=== PATIENT | male | born 1955 ===

== ENCOUNTER 2024-09-06 11:47 | Emergency (ER) | payer SELFPAY ==
[2024-09-06 11:48] VITALS: BP 141/63; PULSE 80; RESP 17; TEMP 36.7; O2SAT 95
--- NOTE | 2024-09-06 12:10 | XR_ITS ---
WS: [id number] XR knee LT 3V* [id number] REASON FOR EXAM: pain FINDINGS: Total left knee arthroplasty. Comminuted fracture of the distal femoral metadiaphysis with mild fracture displacement and anterior angulation at the fracture site. There may be an undisplaced fracture of the upper pole of the patella. The femoral component of the arthroplasty maintains appropriate relation to the tibial portion of the arthroplasty. XR/XR knee LT 3V* [id number] IMPRESSION: Femoral and possible patellar fracture of a total left knee arthroplasty as abo ve.
[2024-09-06 12:58] VITALS: BP 140/77; PULSE 78; O2SAT 94
--- NOTE | 2024-09-06 13:19 | PC.NURSE ---
per family transportation worker pt does not want the morphine anymore, but requesting tylenol if possible. Dr. Moore notified.
--- NOTE | 2024-09-06 13:27 | W.ED.EXTPRO ---
HPI - Extremity Problem General: Chief complaint: Extremity Injury, Lower Stated complaint: fall - left knee pain Time Seen by Provider: 09/06/24 11:50 History of Present Illness: Patient is a 69-year-old non-Gabonese speaking male who presents via EMS after a fall outside while disposing of garbage. Patient reports falling on grass/dirt and hyperextending his left knee. Of note, patient has bilateral total knee replacements performed in [facility] in May 2017 (approximately 7 years ago). Patient complains of left knee pain and limited range of motion. He denies any other injuries. Patient arrived ambulatory with EMS but now unable to bear weight on the affected extremity. MD Complaint: extremity pain Related Data Allergies Allergy/AdvReac Type Severity Reaction Status Date / Time No Known Allergies Allergy Verified 09/06/24 11:53 Physical Exam Const: COMMON NORMALS: no acute distress, average body habitus, alert and well nourished GENERAL APPEARANCE: cooperative ORIENTATION/CONSCIOUSNESS: Yes awake HENMT: COMMON NORMALS: normocephalic and atraumatic HEAD & SCALP: normocephalic and atraumatic Eye: COMMON NORMALS: conjunctivae normal CONJUNCTIVA: Yes conjunctivae normal Neck/C-Spine: GENERAL: Yes normal visual inspection Resp: COMMON NORMALS: normal respiratory effort, No retractions and No use of accessory muscles Cardio: COMMON NORMALS: regular rhythm and Peripheral pulses 2+ throughout RHYTHM: regular rhythm PERIPHERAL PULSES: Peripheral pulses 2+ throughout GI: COMMON NORMALS: Soft to palpation and non-tender PALPATION: Yes Soft to palpation Extremity: NARRATIVE EXTREMITY EXAM: limited ROM of the LLE at knee due to pain. NV intact. Closed. superficial abrasion noted to the left knee. Neuro: COMMON NORMALS: no focal motor deficits SENSORIUM/ORIENTATION: Yes alert Skin: COMMON NORMALS: no rashes or lesions noted GENERAL SKIN EXAM: no rashes or lesions noted Course Vital Signs: Vital signs: Vital Signs Temperature 98.1 F 09/06/24 11:48 Pulse Rate 78 09/06/24 12:58 Respiratory Rate 17 09/06/24 11:48 Blood Pressure 140/77 09/06/24 12:58 Pulse Oximetry 94 09/06/24 12:58 Oxygen Delivery Me thod Room Air 09/06/24 12:58 MDM - Extremity (Nontraumatic) Medical Decision Making ROS: Constitutional: Denies fever, chills Musculoskeletal: Left knee pain and limited range of motion, denies hip pain Neurological: Normal sensation in lower extremities All other systems reviewed and negative MEDICATIONS AND ALLERGIES: Medications: - Multivitamin Allergies: - No known drug allergies PAST HISTORICAL DATA: Past Surgical History: - Bilateral total knee replacements (2018, [facility]) Social History: - Recently moved to [facility] (approximately 6 months ago) - Non-Gabonese speaking PHYSICAL EXAM: General: Alert, non-toxic appearing, in moderate distress due to pain HEENT: Head normocephalic and atraumatic. Mucous membranes moist Neck: Supple Respiratory: No increased work of breathing, No wheezing Cardiac: Regular rate and rhythm, 2+ pulses in all extremities Abdomen: Soft, non-distended, no rebound or guarding Musculoskeletal: - Left knee: Superficial abrasion over anterior aspect - Limited flexion beyond 90 degrees - No significant swelling - Unable to bear weight Neurovascular: - Intact sensation to light touch - Normal toe movement - Intact distal pulses INITIAL IMPRESSION AND PLAN: Working Diagnosis: Left knee pain and possible periprosthetic fracture status post fall Plan: 1. X-ray left knee 2. Pain management as needed 3. Orthopedic consultation pending imaging TEST INTERPRETATIONS: Left Knee X-ray: Periprosthetic fracture noted in the proximal aspect of the knee replacement hardware with multiple fragments CONSIDERED BUT NOT PERFORMED: IV morphine offered but declined by patient Local orthopedic intervention considered but not performed due to case complexity and lack of necessary equipment FINAL IMPRESSION: Primary diagnosis: Left knee periprosthetic fracture requiring surgical intervention The clinical picture is not currently suggestive of compartment syndrome, vascular compromise, or isolated soft tissue injury. Although other conditions were also considered, they were deemed unlikely based on the clinical information available. CLINICAL DISPOSITION: The patient's current condition is stable but requires surgical intervention. Patient accepted for transfer by Dr. Hagen at [facility] in [place], [place] for definitive orthopedic care. Rationale for transfer: Patient requires complex orthopedic surgical intervention not available at [facility] due to the nature of the periprosthetic fracture and need for specialized equipment/expertise. RISK STRATIFICATION AND CLINICAL DECISION RULES APPLIED: No formal clinical decision rules were applicable to this case. Clinical decision-making was based on obvious radiographic findings of periprosthetic fracture requiring higher level of orthopedic care. CASE SUMMARY: 69-year-old male with history of bilateral total knee replacements presented after a fall with left knee pain and limited mobility. X-ray revealed periprosthetic fracture around left knee prosthesis requiring transfer to higher level of care. Patient was made NPO, received IV Tylenol for pain management, and was accepted for transfer to [facility] for definitive orthopedic care. Lab Data Radiology Impressions Knee X-Ray 09/06/24 12:10 IMPRESSION: Femoral and possible patellar fracture of a total left knee arthroplasty as above. All radiology interpretation(s) finalized by discharge Discharge Plan Discharge Patient Disposition: Xfer Short-Term Hosp Clinical Impression: Fracture, femur, distal Condition: Stable Print Language: Gabonese Coding Level of Care Code ED Living Coach for Vanna Jaffe
--- NOTE | 2024-09-06 13:57 | PC.NURSE ---
this nurse called pt report for er to er transfer to Keena Anna RN at [facility].
[2024-09-06 14:00] VITALS: PULSE 77; O2SAT 98
[2024-09-06 15:10] VITALS: BP 140/77; PULSE 74; O2SAT 95
== END 2024-09-06 15:12 | disposition short-term general hospital (02) ==
PROVIDERS: Emergency Provider Student in an Organized Health Care Education/Training Program
DX: S72.402A Unspecified fracture of lower end of left femur, initial encounter for closed fracture (principal); M97.12XA Periprosthetic fracture around internal prosthetic left knee joint, initial encounter; W19.XXXA Unspecified fall, initial encounter; Z96.653 Presence of artificial knee joint, bilateral
CPT/HCPCS: 29530; 73562; 99283